=== PATIENT | female | born 1995 | race Hispanic/Latino ===

== ENCOUNTER 2022-05-14 17:15 | Emergency (ER) | payer SELFPAY ==
[2022-05-14] MEDS ORDERED: Acetaminophen 500 MG TAB ONE (18:20)
[2022-05-14] MEDS ORDERED: Metoclopramide HCl 10 MG/2 ML VIAL ONE (18:21)
[2022-05-14] MEDS ORDERED: diphenhydrAMINE 50 MG/ML VIAL ONE (18:21)
[2022-05-14 18:24] LABS: BHCG - Serum Negative (NEGATIVE); Pregs Control Background? CLEAR/WHITE (CLR/WHITE); Pregs Control Bar Appear? YES (CONTROL BAR)
[2022-05-14 18:25] LABS: #Eosinphils 0.1 thou/uL (0.0-0.7); #Lymphocytes 3.2 thou/uL (1.20-3.40); #Monocytes 0.6 thou/uL (0.11-0.59); #Neutrophils 3.8 thou/uL (1.40-6.50); %Basophils 0.6 % (0.0-1.0); %Eosinophils 1.7 % (0.0-10.0); %Monocytes 7.4 % (0.0-10.0); %Neutrophils 49.3 % (42.0-75.0); Hemoglobin 13.9 g/dL (12.0-16.0); Mean Corpuscular HGB CONC 35.7 g/dL (32.0-36.0); Mean Corpuscular Hemoglobin 32.6 pg (27.0-31.0); Mean Corpuscular Volume 91.3 fl (78.0-98.0); Mean Platelet Volume 7.2 fL (7.4-10.4); Platelet Count 260 10x3/uL (130-400); Red Blood Cell (RBC) Count 4.28 mill/uL (4.20-5.40); White Blood Cell (WBC) Count 7.7 10x3/uL (4.8-10.8)
[2022-05-14 18:39] LABS: ALT (SGPT) 11 U/L (8-55); AST (SGOT) 16 U/L (5-34); Albumin 4.2 g/dL (3.5-5.0); Alkaline Phosphatase 72 U/L (40-110); Anion Gap 14 mmol/L (10-20); BUN (Urea Nitrogen) 12 mg/dL (7.0-18.7); Bilirubin, Total 0.3 mg/dL (0.2-1.2); Calc. Creatinine Clearance 0 mL/min (70-130); Calcium 9.1 mg/dL (7.8-10.44); Carbon Dioxide 25 mmol/L (22-29); Chloride 103 mmol/L (98-107); Estimated GFR 122; Globulin 3.2 g/dL (2.4-3.5); Glucose 96 mg/dL (70-105); Potassium 3.7 mmol/L (3.5-5.1); Protein, Total 7.4 g/dL (6.0-8.3); Sodium 138 mmol/L (136-145)
== END 2022-05-14 21:09 | disposition home or self-care (01) ==
LOC: ERS 17:15
DX: R51.9 Headache, unspecified (principal); R00.2 Palpitations; K21.9 Gastro-esophageal reflux disease without esophagitis
CPT/HCPCS: 70450; 71045; 80053; 84443; 84484; 84703; 85025; 93005; 96365; 96375; J1200; J2765